=== PATIENT | female | born 1960 | race Caucasian/White ===

== ENCOUNTER 2021-10-10 16:21 | Outpatient (RCR) | payer BC, SELFPAY ==
--- OUTSIDE RECORDS SUMMARY | 2021-10-05 09:14 | XMS_ITS | Continuity of Care Document ---
:1960 Author Support Name Relationship Address Phone Chris HECTOR HIM DIRECTOR M Unavailable [facility] [place] [address] Radha ZURITA Unavailable [id number] [place] [address] [place] [address] Allergies, Adverse Reactions, Alerts No known allergies Social History Smoking Status Status Start Date End Date Date of Observat ion Never smoked tobacco July 26, 2021 11:52am (finding) Additional Data Assigned Sex Female Problems Active Problems Medical Problem Onset Date Status Osteoporosis Active Anxiety Active Medications Medication Status Dose Units Route Directions Qty Days Start End Ins tructions Date Date Paroxetine Active 30 MG PO Daily Hcl (Paxil) 30 Mg TAB Paroxetine Active 30 MG PO Daily 90 90 Ana Hcl (Paxil) 14, 30 Mg TAB 2021 10:31a m Romosozumab- Active 105 MG SC Aqqg (Evenity) 105 Mg/1.17 Ml INJ Relevant Diagnostic Tests and/or Laboratory Data Laboratory Results Test Date/Time Result Interpretation Reference Result Perfo rming Range Comment Site Calcium September 12, 9.2 8.4-10.6 [facility] Lab Level 2021 10:30am [address] [facility] [address] Advance Directives Advance Directive Response Recorded Date/Time Has patient completed a No July 26, 2021 11:52am Health Care Directive? Insurance Providers Guarantor Nikolay Kate J Address [address] [facility] [address] Contact Info. Home Phone: Payer Policy Id Coverage Id Subscriber's Subscriber Id Effective E xpiration Name Date Date [facility] [id number] NikolayKate roberts [id number] Systems Ins [id number] Encounters Encounter Location(s) Arrival/Admit Date Discharge/Depart Date Provider(s) Registered [place] September 12, 2021 [facility] 7:01am A MARKET SALES MANAGER
--- NOTE | 2021-10-08 16:25 | URNOTE ---
03/22/21 note entered by Kathryn Salazar: Received request for prior auth for Evenity([id number]). This has been approved, 210mg per month x 12 (210units). Case [id number] Amendment 1 - Kathryn Salazar - 03/22/21 @ 1423 Effective dates: 02/02/2021-03/20/2022
[2021-10-10 10:53] VITALS: BP 120/81; PULSE 85; RESP 16; TEMP 36.4
[2021-10-10] MEDS: ROMOSOZUMAB-AQQG 210 MG/2.34 ML INJ SUBCUT (11:19)
== END 2021-10-11 23:59 | disposition home or self-care (01) ==
LOC: CCIC 16:21
PROVIDERS: PCP Nurse Practitioner Family; Visit Provider Clinical Nurse Specialist
DX: M81.0 Age-related osteoporosis without current pathological fracture (principal)
CPT/HCPCS: 96372; 96374; J3590

== ENCOUNTER 2021-11-07 11:03 | Outpatient (RCR) | payer BC, SELFPAY ==
[2021-11-07 11:35] VITALS: BP 123/79; PULSE 77; RESP 16; TEMP 36.7; O2SAT 98
[2021-11-07] MEDS: ROMOSOZUMAB-AQQG 210 MG/2.34 ML INJ SUBCUT (12:13)
== END 2021-11-11 23:59 | disposition home or self-care (01) ==
LOC: CCIC 11:03
PROVIDERS: PCP Nurse Practitioner Family; Visit Provider Clinical Nurse Specialist
DX: M81.0 Age-related osteoporosis without current pathological fracture (principal)
CPT/HCPCS: 36415; 82310; 96372; 96374; J3590

== ENCOUNTER 2022-01-30 11:00 | Outpatient (RCR) | payer BC, SELFPAY ==
[2021-12-05 10:54] VITALS: BP 117/75; PULSE 71; RESP 16; TEMP 36.8; O2SAT 97
[2021-12-05] MEDS: ROMOSOZUMAB-AQQG 210 MG/2.34 ML INJ SUBCUT (11:05)
[2022-01-02 11:06] LABS: Calcium* 8.7 mg/dL (8.4-10.6)
[2022-01-02 11:09] VITALS: BP 106/73; PULSE 73; RESP 16; TEMP 36.5; O2SAT 99
[2022-01-02] MEDS: ROMOSOZUMAB-AQQG 210 MG/2.34 ML INJ SUBCUT (11:25)
[2022-01-30 10:55] VITALS: BP 117/79; PULSE 78; RESP 16; TEMP 36.4; O2SAT 99
[2022-01-30] MEDS: ROMOSOZUMAB-AQQG 210 MG/2.34 ML INJ SUBCUT (11:08)
== END 2022-06-03 23:59 | disposition home or self-care (01) ==
LOC: CCIC 11:00
PROVIDERS: PCP Nurse Practitioner Family; Visit Provider Clinical Nurse Specialist
DX: M81.0 Age-related osteoporosis without current pathological fracture (principal)
CPT/HCPCS: 36415; 82310; 96372; 96401; J3590

== ENCOUNTER 2023-07-24 10:00 | Outpatient (CLI) | payer BC, SELFPAY | END 2023-07-24 10:01 | disposition home or self-care (01) | PROVIDERS: PCP Nurse Practitioner Family; Visit Provider Nurse Practitioner Family | DX: E78.2 Mixed hyperlipidemia (principal); Z13.21 Encounter for screening for nutritional disorder; Z13.29 Encounter for screening for other suspected endocrine disorder; Z13.0 Encounter for screening for diseases of the blood and blood-forming organs and certain disorders involving the immune mechanism | CPT/HCPCS: 80053; 80061; 82306; 85025 ==

== ENCOUNTER 2023-07-30 14:20 | Outpatient (CLI) | payer BC, SELFPAY ==
--- NOTE | 2023-07-30 14:40 | MM_ITS ---
Patient: BAO ZURITA Facility:?[facility] Patient ID:?[id number] Site Patient ID:?[id number]. Site :?1960 Study:?XRay-Breast Bilateral 3D W/CAD-07/30/2023 3:14:37 PM Ordering Physician:Holly Levi Final Report: BILATERAL SCREENING MAMMOGRAM WITH COMPUTER-AIDED DETECTION AND TOMOSYNTHESIS TECHNIQUE: CC and MLO views were obtained. These mammographic images have been obtained using full-field digital technique. These mammographic images were interpreted with the benefit of computer-aided detection. Breast Tomosynthesis was used in this interpretation. COMPARISON FILM: 02/02/20, 01/26/20, 10/08/18. FINDINGS: The breasts are heterogeneously dense, which may obscure small masses. IMPRESSION: There is no radiographic evidence for malignancy. ASSESSMENT: BI-RADS Category 1: Negative RECOMMENDATION: Routine screening mammogram in 1 year. A lay language report of this examination will be provided to the patient. Bandar Juárez M.D. Diagnostic Radiologist [email or web address] DSM/sp R& Transcribed: 1:09 p.m. SP/Dictated by: Bandar Juárez MD @ 07/31/2023 12:22:00 PM Signed by:?Bandar Juárez MD @07/31/2023 3:46:22 PM (Electronic Signature)
== END 2023-07-30 14:21 | disposition home or self-care (01) ==
LOC: MAMMO 14:21
PROVIDERS: PCP Nurse Practitioner Family; Visit Provider Nurse Practitioner Family
DX: Z12.31 Encounter for screening mammogram for malignant neoplasm of breast (principal); R92.2 Inconclusive mammogram
CPT/HCPCS: 77063; 77067

== ENCOUNTER 2024-02-12 14:12 | Outpatient (CLI) | payer BC, SELFPAY ==
--- NOTE | 2024-02-12 14:30 | CRLHL7_ITS ---
For Patients: As a result of the Century Cures Act, medical imaging exams and procedure reports are released immediately into your electronic medical record. You may view this report before your referring provider. If you have questions, please contact your health care provider. DXA BONE MINERAL DENSITY STUDY Reason for exam: Osteporosis. Current height (in): 68. Weight (lb): 158. Menopause age: 53. Ethnicity: White. 1. Have you had a previous hip or vertebral fracture? No. 2. Have you had any fractures during your adult life which did not result from significant trauma (e.g., auto accident)? No. 3. Did either of your parents have a hip fracture? No. 4. Do you smoke? No. 5. Have you ever taken Glucocorticoids? No. 6. Do you have rheumatoid arthritis? No. 7. Do you have secondary osteoporosis? No. 8. Do you drink 3 or more alcoholic drinks per day? Yes. 9. Are you being treated for osteoporosis? Yes. 10. Have you ever taken any of the following medications: Actonel, Evista, Fosamax, Miacalcin, Reclast, Boniva, Forteo, HRT (i.e. estrogen/hormone therapy), Protelos, Prolia, Vitamin D, Calcium, other ??? please specify. ANSWER: Yes, Reclast, Prolia and Evenity. 11. Do you have any of the following medical conditions: Anorexia or bulimia, asthma or emphysema, end stage renal disease, hyperparathyroidism, any seizure disorders, cancer, inflammatory bowel diseases, hysterectomy, other ??? please specify. ANSWER: No. 12. What was your maximum height (inches)? 68. 13. Do you perform weight bearing exercise regularly? No. 14. Do you regularly consume dairy products? Yes. 15. Do you drink caffeinated beverages? Yes. 16. At what age did your period start? 14. 17. Are you premenopausal? No. 18. How many full term pregnancies have you had? 1. 19. Have you ever missed your period for more than 6 months in a row (not including or menopause)? No. TECHNIQUE: Bone mineral density study was performed using the DEXMA. FINDINGS: The results of the study expressed as bone mineral density (BMD) are as follows: Lumbar spine L1 to L4: BMD: 0.858 g/cm2. T-score: -1.7. Z-score: -0.1. Neck Left: BMD: 0.489 g/cm2. T-score: -3.2. Z-score: -1.8. Right: BMD: 0.525 g/cm2. T-score: -2.9. Z-score: -1.5. Total Left: BMD: 0.683 g/cm2. T-score: -2.1. Z-score: -1.0. Right: BMD: 0.695 g/cm2. T-score: -2.0. Z-score: -0.9. IMPRESSION: Osteoporosis. *Comparison exams done prior to 09/2019 were performed on different unit, Anzu. COMPARISON: Compared with scan of 01/10/2021, the bone mineral density has increased by 35.7 percent at the spine and increased by 11.4 percent at the hip. Bandar Juárez M.D. Diagnostic Radiologist [email or web address] SP/Dictated by: Bandar Juárez MD @ 02/13/2024 11:19:00 AM (Electronically Signed)
== END 2024-02-12 14:13 | disposition home or self-care (01) ==
LOC: RAD 14:13
PROVIDERS: PCP Nurse Practitioner Family; Visit Provider Nurse Practitioner Family
DX: M81.0 Age-related osteoporosis without current pathological fracture (principal)
CPT/HCPCS: 77080

== ENCOUNTER 2024-03-24 12:38 | Outpatient (REF) | payer BC, SELFPAY ==
[2024-03-24 13:25] LABS: Alkaline Phosphatase* 45 U/L (40-150)
[2024-03-24 13:26] LABS: Calcium* 9.9 mg/dL (8.4-10.6)
[2024-03-24 13:30] LABS: Vitamin D 25 Hydroxy* 53 ng/mL (30-80)
[2024-03-24 14:07] LABS: PTH Intact* 33.3 pg/mL (14.2-75.2)
== END 2024-03-24 12:39 | disposition home or self-care (01) ==
LOC: NPINS 12:38
PROVIDERS: PCP Nurse Practitioner Family; Visit Provider Family Medicine Sports Medicine
DX: M81.0 Age-related osteoporosis without current pathological fracture (principal); S22.080A Wedge compression fracture of T11-T12 vertebra, initial encounter for closed fracture
CPT/HCPCS: 82306; 82310; 83970; 84075

== ENCOUNTER 2024-08-03 14:29 | Outpatient (CLI) | payer BC, SELFPAY | END 2024-08-03 14:30 | disposition home or self-care (01) | PROVIDERS: PCP Nurse Practitioner Family; Visit Provider Nurse Practitioner Family | DX: E78.5 Hyperlipidemia, unspecified (principal); M81.0 Age-related osteoporosis without current pathological fracture | CPT/HCPCS: 80053; 80061; 85025 ==

== ENCOUNTER 2024-11-10 08:57 | Outpatient (CLI) | payer BC, SELFPAY ==
--- NOTE | 2024-11-10 09:15 | CRLHL7_ITS ---
For Patients: As a result of the Century Cures Act, medical imaging exams and procedure reports are released immediately into your electronic medical record. You may view this report before your referring provider. If you have questions, please contact your health care provider. INDICATION: BILATERAL SCREENING MAMMOGRAM, ASYMPTOMATIC 64 Y/O FEMALE COMPARISON: 07/30/2023, 02/02/2020, 01/26/2020 TECHNIQUE: Digital mammogram in CC and MLO projections including computer-aided detection (CAD) and tomosynthesis. BREAST COMPOSITION: The breasts are heterogeneously dense, which may obscure small masses. FINDINGS: No suspicious findings. ASSESSMENT: BI-RADS 1 Negative RECOMMENDATION: Annual screening mammogram. A lay language report of this examination will be provided to the patient. Dictated by: Tamiko Anguiano MD @ 11/11/2024 11:52:34 (Electronically Signed)
== END 2024-11-10 08:58 | disposition home or self-care (01) ==
LOC: MAMMO 08:57
PROVIDERS: PCP Nurse Practitioner Family; Visit Provider Nurse Practitioner Family
DX: Z12.31 Encounter for screening mammogram for malignant neoplasm of breast (principal); R92.333 Mammographic heterogeneous density, bilateral breasts
CPT/HCPCS: 77063; 77067